=== PATIENT | male | born 2000 | race African-American/Black ===

== ENCOUNTER 2021-06-02 14:49 | Emergency (ER) | payer MEDICAID, SELFPAY ==
[2021-06-02 14:50] VITALS: BP 116/72; PULSE 75; RESP 16; TEMP 36.4; O2SAT 100; BMI 17.8
--- NOTE | 2021-06-02 15:15 | EX.ED.GUMALE ---
HPI History of Present Illness Chief Complaint: Complaint Informant: patient Pain Onset: Days (6 days) Current Severity: Mild Maximum Severity: Mild Narrative Narrative: Patient presents secondary to dysuria for the past 6 days. He denies abdominal or back pain. No fever or chills. He had one single day where he had a small amount of penile discharge. None since. He denies lesions or rash. PFSH PFSH Medical History no medical history no medical history Allergy/AdvReac Type Severity Reaction Status Date / Time No Known Allergies Allergy Verified 06/02/21 14:52 Social History Smoking Status: Never smoker ROS ROS ED Constitutional Constitutional ED: Denies chills or fever(s) Eyes Eyes: Denies change in vision ENT ENT ED: Denies sore throat Cardiovascular Cardiovascular: Denies chest pain Respiratory/Chest Respiratory/Chest: Denies cough or dyspnea Gastrointestinal Gastrointestinal: Denies abdominal pain, nausea or vomiting Genitourinary Genitourinary ED: Reports dysuria; Denies hematuria Musculoskeletal Musculoskeletal: Denies back pain Integumentary Denies rash Neurologic Neurologic: Denies headache(s) Allergic/Immunologic Allergic/Immunologic ED: Denies urticaria EXAM Physical Exam Const Vital Signs: 06/02/21 14:50 Temperature 97.5 F L Temperature Source Temporal Pulse Rate 75 Respiratory Rate 16 Blood Pressure 116/72 Blood Pressure Mean 86 Pulse Ox 100 Oxygen Delivery Method Room Air Positive well nourished and well developed General Appearance ED: well developed HEENT Reports normocephalic and head/scalp atraumatic Eyes PERRL and EOMs intact bilaterally Neck supple Chest Wall inspection of chest normal and palpation of chest normal Resp normal respiratory effort and clear to auscultation bilaterally Cardio regular rate and regular rhythm GI normal to inspection, nondistended, normoactive bowel sounds Palpation: soft Penis: normal penis and circumcised Meatus: meatus normal; Negative for meatal discharge Scrotum: testes descended bilaterally; Negative for tenderness Back/Spine no CVA tenderness Extremity normal to inspection Neuro oriented x3 and no sensory deficits noted Sensorium / Orientation: alert Motor Exam: strength 5/5 throughout Psych mental status grossly normal Skin no rashes or lesions noted MDM MDM MDM Narrative Medical decision making narrative: Urine sent for urinalysis as well as GC chlamydia testing. Lab Data Attestation: I reviewed the patient's lab results. Labs: Laboratory Results - last 24 hr 06/02/21 15:05 Urine Color Yellow Urine Clarity Sl. Cloudy Urine pH 7.0 Ur Specific [place] 1.010 Urine Protein Negative Urine Glucose (UA) Normal Urine Ketones 5 H Urine Occult Blood Negative Urine Nitrite Negative Urine Bilirubin Negative Urine Urobilinogen 1 H Ur Leukocyte Esterase Negative Urine RBC 0 SEEN Urine WBC 0 SEEN Ur Squamous Epith Cells 0-5 SEEN Urine Bacteria 0 SEEN Urine Mucus 0 SEEN Treatment and Re-Evaluation Comments:: Urinalysis reveals no sign of acute infection. GC chlamydia tests are still pending at this time. Test results discussed with the patient. Advised him that the STD testing usually takes a couple hours. In light of his symptoms and having a negative urinalysis we will go ahead and treat him with Rocephin, Zithromax, Flagyl. If one of his tests are positive he will receive a phone call so any partners can be tested as well. He is in agreement with this plan. Discharge Plan Triage Chief Complaint: Complaint ED Provider: Flavia Metcalf Dx/Rx/DC Orders Clinical Impression: Dysuria Instructions: ED Dysuria, Uncertain Cause (Adult), ED Testing for Suspected STI Primary Care Provider: Care Physician,No Primary Referrals: Gabrielle Sawyer MD [STAFF PHYSICIAN] - As Needed Care Physician,No Primary [Primary Care Provider] - Disposition Disposition: Home, Self Care
[2021-06-02 15:23] LABS: Bacteria 0 SEEN /hpf (None Seen); Mucous, Urine 0 SEEN /hpf (<or=2+); Red Blood Cells-Urine 0 SEEN /hpf (0-5); White Blood Cells 0 SEEN /hpf (0-5)
[2021-06-02 15:26] LABS: Color, Urine Yellow (Yellow); Glucose, Dipstick Normal (Normal); Ketone-Dipstick 5 mg/dl (Negative); Leukocyte Esterase-Dipstick Negative /ul (Negative); Nitrite-Dipstick Negative (Negative); Occult Blood-Urine Negative /ul (Negative); Protein-Dipstick Negative (Negative); Urine Bilirubin Dipstick Negative (Negative); Urine Clarity Sl. Cloudy (Clear); Urine Urobilinogen 1 mg/dl (Normal)
[2021-06-02 15:37] LABS: Squamous Epithelial Cells - UA 0-5 SEEN /hpf (0-5)
[2021-06-02] MEDS: metroNIDAZOLE 500 MG Tablet 2000 MG PO (16:07)
[2021-06-02] MEDS: Azithromycin 250 MG Tablet 1000 MG PO (16:07)
[2021-06-02] MEDS: Ceftriaxone 500 MG Vial 250 MG IM (16:23)
[2021-06-02 16:44] VITALS: PULSE 79; RESP 16; O2SAT 99
[2021-06-02 17:32] LABS: Chlamydia Trachomatis by PCR Negative (Negative); Neisserai gonorrhoeae by PCR Negative (Negative); Probe Check PASS; Sample Adequacy Control PASS; Specimen Processing Control PASS
== END 2021-06-02 16:45 | disposition home or self-care (01) ==
PROVIDERS: Emergency Provider Emergency Medicine
DX: R30.0 Dysuria (principal); R36.9 Urethral discharge, unspecified
CPT/HCPCS: 81001; 87491; 87591; 96372; 99284